=== PATIENT | female | born 1940 | race Caucasian/White ===

== ENCOUNTER 2017-04-05 16:00 | Observation (INO) | payer MEDICARE ==
[~2017-04-05] VITALS: Ht 157.5 cm; Wt 88.3 kg
[2017-04-05 17:29] LABS: EOSINOPHILS % (AUTO) 1.8 % (0.0-8.0); HEMATOCRIT 36.1 % (36-48); MEAN CORPUSCULAR HEMOGLOBIN 29.3 pg (27.0-33.0); MEAN CORPUSCULAR HGB CONC 33.4 g/dL (32.0-36.0); MEAN CORPUSCULAR VOLUME 87.8 fL (79-99); MONOCYTES % (AUTO) 7.8 % (3.0-13.0); NEUTROPHILS % (AUTO) 73.4 % (40.0-77.0); PLATELET COUNT (AUTO) 187 K/uL (130-400); RED BLOOD CELL COUNT(AUTO) 4.11 MIL/uL (4.00-5.50); RED CELL DISTRIBUTION WIDTH 15.4 % (11.0-15.5); WHITE BLOOD COUNT (AUTO) 7.3 K/uL (4.8-10.8)
[2017-04-05 17:36] LABS: CREATININE 0.8 mg/dL (0.5-1.5); INR 1.94 (0.85-1.15); MAGNESIUM 1.1 mg/dL (1.80-2.40); PARTIAL THROMBOPLASTIN TIME 31.4 SEC (26.3-35.5); POTASSIUM 3.9 mmol/L (3.5-5.1); PROTHROMBIN TIME 20.1 SEC (9.6-11.6)
[2017-04-05] MEDS ORDERED: MAGNESIUM 2GM PREMIX 50ML 50 ML IV ONE ×2 (18:49→23:36)
[2017-04-05] MEDS ORDERED: HYDRALAZINE HCL 20 MG/ML VIAL ONE (21:26)
[2017-04-05] MEDS ORDERED: SODIUM CHLORIDE 0.9% 1000ML 1,000 ML IV SCH (23:05)
[2017-04-05] MEDS ORDERED: ACETAMINOPHEN 325 MG TAB PO PRN (23:15)
[2017-04-05] MEDS ORDERED: ACETAMINOPHEN-CODEINE 300/30MG TAB PO PRN (23:15)
[2017-04-05] MEDS ORDERED: HYDRALAZINE HCL 20 MG/ML VIAL IV PRN (23:15)
[2017-04-05] MEDS ORDERED: ONDANSETRON HCL 4 MG/2 ML VIAL IV PRN (23:15)
[2017-04-06] MEDS ORDERED: ACETAMINOPHEN-CODEINE 300/30MG TAB ONE (01:44)
[2017-04-06 05:53] LABS: BASOPHILS % (AUTO) 0.9 % (0.0-5.0); EOSINOPHILS % (AUTO) 1.4 % (0.0-8.0); HEMATOCRIT 38.7 % (36-48); MEAN CORPUSCULAR HEMOGLOBIN 28.9 pg (27.0-33.0); MEAN CORPUSCULAR HGB CONC 33.3 g/dL (32.0-36.0); MONOCYTES % (AUTO) 7.5 % (3.0-13.0); NEUTROPHILS % (AUTO) 72.2 % (40.0-77.0); PLATELET COUNT (AUTO) 155 K/uL (130-400); RED BLOOD CELL COUNT(AUTO) 4.45 MIL/uL (4.00-5.50); RED CELL DISTRIBUTION WIDTH 15.3 % (11.0-15.5); WHITE BLOOD COUNT (AUTO) 7.4 K/uL (4.8-10.8)
[2017-04-06 06:01] LABS: CREATININE 0.8 mg/dL (0.5-1.5); MAGNESIUM 1.7 mg/dL (1.80-2.40); POTASSIUM 3.5 mmol/L (3.5-5.1)
[2017-04-06] MEDS ORDERED: HYDROCODONE/ACETAMINOPHEN 5/325 MG TAB ONE ×2 (06:25→13:29)
[2017-04-06] MEDS ORDERED: HYDRALAZINE HCL 20 MG/ML VIAL ONE ×2 (07:29→12:16)
[2017-04-06] MEDS ORDERED: PANTOPRAZOLE SODIUM 40 MG TABLET.DR PO SCH (09:00)
[2017-04-06] MEDS ORDERED: ENOXAPARIN SODIUM 40 MG/0.4 ML SYRINGE SQ SCH (09:00)
[2017-04-06] MEDS ORDERED: CARVEDILOL 12.5 MG TABLET PO ONE (10:22)
[2017-04-06] MEDS ORDERED: METFORMIN HCL 500 MG TABLET ONE (10:22)
[2017-04-06] MEDS ORDERED: MAGNESIUM 2GM PREMIX 50ML 50 ML IV ONE (10:22)
[2017-04-06] MEDS ORDERED: PANTOPRAZOLE SODIUM 40 MG TABLET.DR PO ONE (10:30)
[2017-04-06] MEDS ORDERED: ENOXAPARIN SODIUM 40 MG/0.4 ML SYRINGE SQ ONE (10:30)
[2017-04-06] MEDS ORDERED: OLME1TAB7 PO (14:13)
[2017-04-06] MEDS ORDERED: HYDR12.54 PO (14:13)
[2017-04-06] MEDS ORDERED: MAGN400T40 PO (14:14)
[2017-04-06] MEDS ORDERED: OLME20TA10 PO (14:15)
[2017-04-06] MEDS ORDERED: CITALOPRAM 20 MG TABLET PO ONE (16:00)
[2017-04-06] MEDS ORDERED: LOSARTAN 50 MG TABLET PO ONE (16:00)
== END 2017-04-06 13:35 | disposition home or self-care (01) ==
LOC: EDH 16:00 → EDHIP 19:43
PROVIDERS: ADMIT Family Medicine; ATTEND Family Medicine
DX: E83.42 Hypomagnesemia (principal); E11.9 Type 2 diabetes mellitus without complications; I10 Essential (primary) hypertension; J45.909 Unspecified asthma, uncomplicated; E66.01 Morbid (severe) obesity due to excess calories; Z90.49 Acquired absence of other specified parts of digestive tract; Z98.890 Other specified postprocedural states; Z88.0 Allergy status to penicillin
CPT/HCPCS: 36415 ×2; 80048 ×2; 83735 ×2; 83880; 84484; 85025 ×2; 85610; 85730; 93005; 99285; G0378 ×18; J0360 ×3; J1650; J3475 ×3